=== PATIENT | male | born 2000 | race Hispanic/Latino ===

== ENCOUNTER 2022-06-03 15:02 | Emergency (ER) | payer BC ==
[2022-06-03] MEDS ORDERED: Ketorolac Tromethamine 30 MG/ML VIAL ONE (15:45)
== END 2022-06-03 15:53 | disposition home or self-care (01) ==
LOC: CSHERS 15:02
DX: R07.2 Precordial pain (principal)
CPT/HCPCS: 71045; 93005; 96372; J1885

== ENCOUNTER 2023-07-21 14:54 | Emergency (ER) | payer BC ==
[2023-07-21 15:51] LABS: #Eosinphils 0.1 10x3/uL (0.0-0.5); #Monocytes 0.7 10x3/uL (0.0-1.1); #Neutrophils 4.8 10x3/uL (1.5-8.4); %Basophils 0.2 % (0.0-2.0); %Eosinophils 0.7 % (0.0-6.0); %Lymphocytes 33.3 % (18.0-47.0); %Monocytes 8.1 % (0.0-10.0); %Neutrophils 57.6 % (40.0-75.0); Hematocrit 46.2 % (38.8-50.0); Hemoglobin 15.8 g/dL (13.5-17.5); Mean Corpuscular HGB CONC 34.2 g/dL (32.0-36.0); Mean Corpuscular Hemoglobin 31.8 pg (27.0-33.0); Platelet Count 287 10x3/uL (150-450); RBC Distribution Width 12.6 % (11.5-14.5); Red Blood Cell (RBC) Count 4.97 10x6/uL (4.32-5.72); White Blood Cell (WBC) Count 8.4 10x3/uL (3.5-10.5)
[2023-07-21 15:57] LABS: ALT (SGPT) 21 U/L (8-55); AST (SGOT) 21 U/L (5-34); Albumin 4.5 g/dL (3.5-5.0); Alkaline Phosphatase 75 U/L (40-110); Anion Gap 12 mmol/L (10-20); BUN (Urea Nitrogen) 8 mg/dL (8.9-20.6); Bilirubin, Total 0.6 mg/dL (0.2-1.2); Calc. Creatinine Clearance 0 mL/min (70-130); Calcium 9.2 mg/dL (7.8-10.44); Carbon Dioxide 25 mmol/L (22-29); Chloride 105 mmol/L (98-107); Estimated GFR 131; Globulin 2.6 g/dL (2.4-3.5); Glucose 92 mg/dL (70-105); Potassium 4.4 mmol/L (3.5-5.1); Protein, Total 7.1 g/dL (6.0-8.3); Sodium 138 mmol/L (136-145)
[2023-07-21 16:03] LABS: Troponin I Less than 0.010 ng/mL (< 0.028)
[2023-07-21 16:25] LABS: CK (CPK) 124 U/L (30-200)
== END 2023-07-21 16:34 | disposition home or self-care (01) ==
LOC: CSHERS 14:54
DX: R07.9 Chest pain, unspecified (principal)
CPT/HCPCS: 36415; 71045; 80053; 82550; 83735; 84484; 85025; 93005